=== PATIENT | male | born 1980 | race Caucasian/White ===

== ENCOUNTER 2021-06-30 16:23 | Emergency (ER) | payer OTHER, SELFPAY ==
--- NOTE | ~2021-06-30 | XR_ITS ---
XR lumbar spine min 4V 06/30/2021 17:10 Indication: Low back pain for 3 weeks Procedure: 5 views of the lumbar spine Comparison: No prior studies for comparison. Findings: There is mild levocurvature of the lumbar spine. There is mild disc narrowing at L5-S1. Barber tebral body heights are maintained. No evidence for spondylolisthesis. Sacral foramen are symmetric. Pedicles intact. There is mild facet degenerative change at L5-S1. Impression: 1: Mild lumbar spondylosis. Reviewed, dictated and finalized at location A. GAUGER Impression: 1: Mild lumbar spondylosis.
--- NOTE | 2021-06-30 16:38 | PC.NURSE ---
1638- pt went to vehicle to grab cellphone.
[2021-06-30 16:42] VITALS: BP 131/77; PULSE 82; RESP 18; TEMP 36.4; O2SAT 100
--- NOTE | 2021-06-30 16:48 | ED.BACK ---
HPI - Back Pain/Injury General Chief Complaint: Back Pain/Injury Stated Complaint: . Time Seen by Provider: 06/30/21 16:48 Source: patient Mode of arrival: ambulatory Limitations: no limitations History of Present Illness HPI Narrative: 41 yo M presents with pain to low back with intermittent radiation of pain to L leg for past 2 to 3 wks. Denies injury. Pain the worst when first waking up in the AM and after sitting for long periods of time. Has been taking ibuprofen for pain. Today left work early because of pain. pt gets drug tested often. States my boss said it's ok if i take hydrocodone . Denies numbness/tingling. no saddle anesthesia. Ambulatory with steady gait. no weakness to LEs. All systems reviewed and negative except as noted above. Related Data Allergies Allergy/AdvReac Type Severity Reaction Status Date / Time amoxicillin [From Amoxil] AdvReac Nausea and Verified 06/30/21 16:49 Vomiting Review of Systems Review of Systems: CONSTITUTIONAL: Denies fever, chills, or sweats. EYES: Denies visual changes, redness, or discharge. ENT: Denies rhinorrhea, congestion, sore throat, or otalgia. CARDIOVASCULAR: Denies chest pain, palpitations, or edema. RESPIRATORY: Denies cough or dyspnea. GASTROINTESTINAL: Denies abdominal pain, nausea, vomiting, or diarrhea. GENITOURINARY: Denies dysuria or hematuria. SKIN: Denies rash or itching. MUSCULOSKELETAL: Low back pain with intermittent radiation to left leg. NEUROLOGIC: Denies headache, numbness, or weakness. PSYCHIATRIC: Denies anxiety or depression. All other systems reviewed are negative, except as documented in HPI. PMFSH Comments At time of signature, agree with nursing past medical, surgical, social and family history. There is no relevant family history pertinent to the presenting complaint. Exam Narrative: GENERAL: This is a well-nourished, well-developed patient, in no apparent distress. HEAD: normocephalic, atraumatic. EYES: PERRL. Sclera clear/white. Vision is grossly intact. EARS: External ears normal, auditory canals clear and without drainage, TMs normal without perforation. Hearing grossly intact. NOSE: External nose normal with no obvious nasal discharge, nares without redness, no rhinorrhea. THROAT: Mucous membranes moist, posterior pharynx clear. NECK: Neck supple, non-tender without lymphadenopathy, masses or thyromegaly. CARDIOVASCULAR: Regular rate and rhythm without murmurs, gallops, or rubs. RESPIRATORY: Clear to auscultation. Breath sounds equal bilaterally. No wheezes, rales, or rhonchi. GASTROINTESTINAL: Abdomen soft, non-tender, nondistended. Bowel sounds are active. No hepato-splenomegaly, or palpable masses. No guarding. SKIN: warm, Dry, intact with no suspicious lesions or rash, good texture and turgor. NEURO: awake, alert, and oriented to person, place and time. There were no obvious focal neurologic abnormalities. EXTREMITIES: No joint tenderness, effusion, or edema noted. No calf tenderness. Negative Homans sign bilaterally. BACK: Midline tenderness to lumbar spine, muscular tenderness and spasming to low back. LE strength 5/5. decreased flexion but otherwise normal ROM. Course Course Level of Care: Express Care Visit Vital Signs Vital signs: Vital Signs Temperature 36.4 C L 06/30/21 16:42 Pulse Rate 82 06/30/21 16:42 Respiratory Rate 18 06/30/21 16:42 Blood Pressure 131/77 06/30/21 16:42 Pulse Oximetry 100 06/30/21 16:42 Temperature 36.4 C L 06/30/21 16:42 Pulse Rate 82 06/30/21 16:42 Respiratory Rate 18 06/30/21 16:42 Blood Pressure 131/77 06/30/21 16:42 Pulse Oximetry 100 06/30/21 16:42 MDM - Back Pain/Injury MDM Narrative Medical decision making narrative: No risk factors or findings concerning for epidural abscess, diskitis, vertebral osteomyelitis, cord compression, cauda equina, vertebral fracture or bone malignancy, AAA, or pyelonephritis. Patient instructed to consider further imaging and w
[2021-06-30] MEDS: KETOROLAC (*BKC) 60 MG/2 ML VIAL IM (16:59)
== END 2021-06-30 17:30 | disposition home or self-care (01) ==
PROVIDERS: Emergency Provider Nurse Practitioner Family
DX: M47.816 Spondylosis without myelopathy or radiculopathy, lumbar region (principal); S39.012A Strain of muscle, fascia and tendon of lower back, initial encounter; X58.XXXA Exposure to other specified factors, initial encounter; M54.42 Lumbago with sciatica, left side
CPT/HCPCS: 72110; 96372; 99203; G0463; J1885

== ENCOUNTER 2022-07-18 11:52 | Outpatient (CLI) | payer OTHER, SELFPAY ==
--- NOTE | 2022-07-18 12:30 | ECG_ITS ---
Measurements Intervals Jerome Rate: 82 P: 40 [place]: 140 QRS: 17 QRSD: 93 T: 11 QT: 354 QTc: 415 Interpretive Statements SINUS RHYTHM BASELINE ARTIFACT- I, II, III, AVR, AVL, AVF NORMAL ECG NO PREVIOUS ECG AVAILABLE FOR COMPARISON Electronically Signed On 07-18-2022 14:19:21 CDT by Austin Thomason D.O.
[2022-07-18 13:08] LABS: Hematocrit 42.5 % (42.0-52.0); Hemoglobin 14.8 g/dL (14.0-18.0)
== END 2022-07-18 11:53 | disposition home or self-care (01) ==
LOC: ANHSURGERY 11:58
PROVIDERS: Anesthesiology; PCP Family Medicine; Visit Provider Neurological Surgery
DX: M54.16 Radiculopathy, lumbar region (principal); Z01.818 Encounter for other preprocedural examination
CPT/HCPCS: 36415; 85014; 85018; 86850; 86900; 86901; 93005

== ENCOUNTER 2022-07-25 00:14 | Day surgery (SDC) | payer OTHER, SELFPAY ==
[2022-07-16 13:15] VITALS: BMI 30.1
--- NOTE | 2022-07-16 13:21 | PC.NURSE ---
Report to the Outpatient Waiting Room, entrance under the green pavilion located off [facility], at time 9:00 on date 07/25/22. Planned Procedure Time: 11:00. Time changes happen often and if your time is changed the preop area will call you the afternoon before. - You and your visitor will be asked to self-screen and do not enter if you have any COVID symptoms. - Only one visitor is requested with a max of two and NO children visitors are allowed at this time. - The patient visitor may be requested to leave or wait in car when not with patient due to distancing restrictions. - A mask is optional within the hospital at this time. Patients may have clear liquids (water, carbonated beverages, clear teas, apple juice) until 3 hours prior to surgery (8:00) with a maximum of 20 ounces. - No food from midnight until time of surgery Take the following medications with a SIP of water the morning of surgery: PAIN PILL DO NOT STOP ANY OF YOUR OTHER PRESCRIPTION MEDICATIONS PRIOR TO SURGERY EXCEPT THE FOLLOWING Medications to discontinue per physician: IBUPROFEN Date to take last dose: PER DR. JESUS Please no make-up, nail indonesian, hairspray, perfume, deodorant, or body powder the day of surgery. No jewelry (including any body piercings) or valuables the day of surgery, leave them at home. Please take a shower or bath the night before, or the morning of, surgery with an antibacterial soap. Wear comfortable, loose fitting clothing. - Jewelry must be removed prior to entering the operating room. Rings and piercings that are not removed may be cut off. - The hospital will not accept responsibility for valuables. - Please leave all valuables, including medications, at home the day of surgery. If you are going home after surgery, a licensed electric lift truck driver must drive you home. - NO public transportation without another adult if you receive anesthesia. - We recommend that an adult stay with you for 24 hours following discharge. - We also recommend that you do not drive, make important decision, drink alcoholic beverages, or take any drugs that were not prescribed by your health care provider for at least 24 hours after your discharge time. Follow any additional instructions given to you from your surgeon. If you or anyone in your household have experienced Covid symptoms in the past week, please notify your surgeon or the nurse liaison at the phone number below for possible testing. Telephone instructions given to PT - MAKAYLA GRAYSON and asked if any additional questions and then verbalized understanding. Patient advised to call surgeon office or pre surgery nurse liaison [phone] if any additional questions.
[2022-07-25] VITALS (12 sets, daily range): BP systolic 130–168; BP diastolic 81–98; PULSE 95–123; RESP 14–20; TEMP 36.6–37.6; O2SAT 94–100
--- NOTE | ~2022-07-25 | XR_ITS ---
EXAMINATION: XR fluoroscopy no charge DATE: 07/25/2022 09:59 INDICATION: Lumbar spondylosis. TECHNIQUE: 2 intraoperative fluoroscopic views of the lumbar spine were obtained. I was not present. Fluoroscopy exposure time was 5 seconds. COMPARISON: Lumbar spine radiographs 06/30/2021 FINDINGS: 2 lateral views of the lumbar spine demonstrates instruments overlying the posterior elemen ts at L3-L4. There is mild lumbar spondylosis. IMPRESSION: 1. Lumbar spine surgery. Reviewed, dictated and finalized at location A. IMPRESSION: 1. Lumbar spine surgery.
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
[2022-07-25] MEDS: LACTATED RINGERS 1,000 ML 30 ML IV CONT ×2 (06:36→09:28)
--- NOTE | 2022-07-25 07:30 | WPDHPUPDATE1 ---
History and Physical Update Update Date/Time: 07/25/22 07:30 History and Physical has been reviewed, including an updated exam of the patient. There are NO changes in the patient's condition. Risks, benefits, and alternatives have been discussed and questions answered. Patient agrees to proceed with procedure.
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
[2022-07-25] MEDS: ceFAZolin 2 GM/D5W 50 ML 2 GM/50 ML BAG IVPB ×2 (07:36→21:57)
[2022-07-25] MEDS: BUPIVACAINE/EPINEPHRINE 0.5% 50 ML VIAL INFILTRATE (08:11)
--- NOTE | 2022-07-25 09:44 | P.OP_ITS ---
Procedure Note - Detailed Date of Procedure 07/25/22 Pre-op Diagnosis Lumbar Stenosis, Lumbar Radiculopathy Post-op Diagnosis Same Procedure Performed Lumbar laminectomy Surgeon Brooklynn Wilder MD Recreation Supervisor JUD Silva Anesthesia General Indications Mr. Gross is a 42-year-old male with history of back and left > right leg pain and numbness as well as urinary incontinence who was found to have significant central stenosis at L3-4. He has failed multiple conservative measures. Surgery in the form of L3 laminectomy was recommended. The risks including bleeding, pain, infection, weakness, CSF leak, nerve damage, paresthesias, and anesthetic complications were discussed. The patient provided writtien informed consent to proceed. Findings Successful L3 laminectomy. No significant disc herniation was identified, so the possible L3-4 microdiskectomy was not performed. 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 He was transferred into the prone position onto the operating table. All pressure points were padded. The L3 level was identified with the C-arm. The planned incision was marked, and the surgical site was prepped and draped in usual sterile fashion. Time out was conducted, and 20cc of 0.5% marcaine with epinephrine was injected into the incision. The incision was opened with a 10-blade scalpel. The soft tissue was opened to the spinous process was opened with the bovie. Self-retaining retractor was placed. A subperiosteal dissection was performed with the bovie along the L3 lamina. A curved currette was placed under the lamina to verify the correct level with the C-arm. The spinous process was removed with a Leksell, and the laminae were thinned with a high-speed drill. Once the ligamentum flavum was exposed, kerrison rongeurs were used to remove the remaining lamina and ligamentum. This was carried out laterally, inferiorly, and superiorly until the dura was felt to be well decompressed. A Woodsen was used to verify this. The ventral epidural space was visualized, and no significant disc herniation was noted. The dura was also somewhat adherent to the PLL. Ultimately, the possible microdiskectomy was not felt to be necessary. The surgical field was copiously irrigated. Surgiflo was used for hemostasis in the epidural space. The muscle was approximated with 0 vicryl. The fascia was closed with 0 vicryl, and the dermis was closed with 2-0 and 3-0 vicryl. 4-0 monocryl was used to close the skin in a subcuticular fashion. Dermabond-like skin glue was applied to the incision. The patient was returned in the supine position in the stretcher, extubated, and transferred to PACU in stable condition. Code: 04844 Implants None Estimated Blood Loss -25.0 Drains No Packing No Pathology None sent Complications No immediate complications Condition Stable Disposition PACU [facility] Billing Surgery - Charge Forward: Surgery Billing
[2022-07-25] MEDS: HYDROmorphone HCL INJ (*CRX) 1 MG/ML SYR 0.5 MG IV PUSH ×2 (09:55→10:00)
--- NOTE | 2022-07-25 10:49 | ADMGEN ---
This patient, Ag Gross, was admitted to [facility] Surg Room 325-01. Patient/family oriented to hospital policies and general routines including ID bracelet, bed and alarms, visiting hours, pain management, procedures, bathroom and other care routines, personal items, smoking policy, room service/diet, and visiting hours. Information on how to activate the Rapid Response Team has been discussed. Patient/Family are encouraged to report perceived risks to care and to ask questions if they do not understand what they are told or what they should do.
[2022-07-25] MEDS: KCL 20MEQ/0.9% SOD CHL 1,000 ML 75 ML IV CONT (11:10)
[2022-07-25] MEDS: ACETAMINOPHEN 500 MG TABLET 1000 MG PO ×2 (11:11→17:26)
[2022-07-25] MEDS: oxyCODONE HCL (*CRX) 5 MG TAB IR 10 MG PO (12:03)
[2022-07-25] MEDS: CYCLOBENZAPRINE HCL 10 MG TABLET PO (12:39)
[2022-07-25] MEDS: DEXAMETHASONE SOD PHOS INJ 4 MG/ML VIAL IV PUSH ×2 (13:00→17:26)
[2022-07-26 00:29] VITALS: BP 144/78; PULSE 96; RESP 16; TEMP 36.6; O2SAT 98
[2022-07-26] MEDS: ACETAMINOPHEN 500 MG TABLET 1000 MG PO ×2 (00:42→05:23)
[2022-07-26] MEDS: DEXAMETHASONE SOD PHOS INJ 4 MG/ML VIAL IV PUSH ×2 (00:42→05:23)
[2022-07-26] MEDS: oxyCODONE HCL (*CRX) 5 MG TAB IR 10 MG PO ×2 (03:27→07:44)
[2022-07-26 04:29] VITALS: BP 157/84; PULSE 71; RESP 14; TEMP 36.6; O2SAT 98
[2022-07-26] MEDS: KCL 20MEQ/0.9% SOD CHL 1,000 ML 75 ML IV CONT (05:22)
[2022-07-26 08:29] VITALS: BP 134/84; PULSE 97; RESP 16; TEMP 36.9; O2SAT 98
[2022-07-26] MEDS: ceFAZolin 2 GM/D5W 50 ML 2 GM/50 ML BAG IVPB (08:49)
[2022-07-26] MEDS: DOCUSATE SODIUM 100 MG CAPSULE PO (08:50)
--- NOTE | 2022-07-26 09:48 | WPDANESPN ---
Anes - Prog Note Post-Op Date/Time: 07/26/22 09:48 Cardiovascular status: normal Respiratory status: normal Airway patency: baseline Mental status: baseline Post-Op hydration status: normal Vital Signs: Last Vital Signs Temp 36.9 C 07/26/22 08:29 Pulse 97 07/26/22 08:29 Resp 16 07/26/22 08:29 BP 134/84 07/26/22 08:29 Pulse Ox 98 07/26/22 08:29 O2 Del Method Room Air 07/25/22 20:00 O2 Flow Rate 10 07/25/22 09:30 Pain Score (VAS): 07/06 I/O: Intake & Output 07/25/22 07/26/22 07/26/22 23:59 07:59 15:59 Intake Total 740 3116 240 Balance 740 3116 240 Post-procedural complaints: none Patient Feedback: Patient satisfied with anesthetic care.
== END 2022-07-26 11:09 | disposition home or self-care (01) ==
LOC: ANHSURGERY 09:43 → ANH3MEDSUR 10:34
PROVIDERS: PCP Family Medicine; Visit Provider Neurological Surgery
PROC: (CPT 63030; principal; 2022-07-25 07:30)
DX: M48.061 Spinal stenosis, lumbar region without neurogenic claudication (principal); M54.16 Radiculopathy, lumbar region; N39.498 Other specified urinary incontinence; F17.210 Nicotine dependence, cigarettes, uncomplicated; E66.9 Obesity, unspecified; Z68.31 Body mass index [BMI] 31.0-31.9, adult; Z79.891 Long term (current) use of opiate analgesic
CPT/HCPCS: 63047; 97161; 97165; 99199; A9270; J0690; J1100; J1170; J2250; J2405; J2704; J2710; J3010; J3480; J7120

== ENCOUNTER 2023-05-20 11:18 | Outpatient (CLI) | payer OTHER, SELFPAY ==
--- NOTE | ~2023-05-20 | XR_ITS ---
XR lumbar spine 2-3V 05/20/2023 11:48 Indication: Status post arthrodesis. Back pain. Procedure: 3 views lumbar spine Comparison: 06/30/2021 Findings: There is a prosthetic disc device at L3-4. There are pedicle screws and fixation rods fusin g L3-4. Hardware appears to be intact. There are laminectomy changes at L3. No acute fracture or trau matic malalignment. Vertebral body heights are maintained. No evidence for spondylolisthesis. Impression: 1: Status post posterior fusion with discectomy at L3-4. Reviewed, dictated and finalized at location B. LL MACHINE OPERATOR Impression: 1: Status post posterior fusion with discectomy at L3-4.
== END 2023-05-20 11:19 | disposition home or self-care (01) ==
PROVIDERS: PCP Family Medicine; Visit Provider Neurological Surgery
DX: Z98.1 Arthrodesis status (principal)
CPT/HCPCS: 72100

== ENCOUNTER 2023-06-12 10:32 | Outpatient (CLI) | payer OTHER, SELFPAY ==
--- NOTE | ~2023-06-12 | XR_ITS ---
AP and lateral views of the left hip Clinical history: Pain Findings: No acute fracture or dislocation is seen. Osseous alignment is anatomic. Left hip joint is preserved. Soft tissues are unremarkable. Impression: No significant abnormality is seen. Reviewed, dictated and finalized at location M. E ROLLER Impression: No significant abnormality is seen.
== END 2023-06-12 10:33 | disposition home or self-care (01) ==
LOC: ANHIMG 10:33
PROVIDERS: PCP Family Medicine; Visit Provider Neurological Surgery
DX: M25.552 Pain in left hip (principal)
CPT/HCPCS: 73502

== ENCOUNTER 2023-06-27 10:24 | Outpatient (CLI) | payer OTHER, SELFPAY ==
--- NOTE | ~2023-06-27 | MR_ITS ---
MRI of the lumbar spine Clinical History: Spinal stenosis Technique: Axial T2-weighted images, and sagittal T1-weighted, T2-weighted, and STIR images were acqu ired. Findings: No acute fracture or subluxation identified. There is posterior fusion from L3 to L4 with b ilateral rods and intrapedicular screws present, probable posterior decompression of L3. No acute fra cture or subluxation seen. No suspicious bone marrow signal abnormality seen. At L1-L2, there is no disc bulge or herniation. There is mild central canal stenosis. Neural foramina are preserved. At L2-L3, there is no disc bulge or herniation. There is moderate canal stenosis, largely apparently a congenital basis. Neural foramina are preserved. At L3-L4, there is minimal disc bulge. No central canal stenosis, with posterior decompression presen t. Probable moderate right neural foraminal narrowing. Left neural foramen probably preserved. At L4-L5, there is mild disc bulge with moderate facet arthropathy. There is moderate to severe centr al canal stenosis/thecal sac compression. There is moderate to advanced right neural foraminal narrow ing. Probable mild left neural foraminal narrowing. At L5-S1, there is no disc bulge or herniation. There is mild facet arthropathy. There is mild centra l canal stenosis. Neural foramina are preserved. Paravertebral soft tissues are unremarkable. Impression: Posterior fusion from L3 to L4 with posterior decompression of L3. Extensive canal stenosis, largely on congenital basis, with mild to moderate degenerative spondylosis changes, as above. Reviewed, dictated and finalized at [facility]. MENTATION SPECIALIST Impression: Posterior fusion from L3 to L4 with posterior decompression of L3. Extensive canal stenosis, largely on congenital basis, with mild to moderate de generative spondylosis changes, as above.
== END 2023-06-27 10:25 | disposition home or self-care (01) ==
LOC: ANHIMG 10:31
PROVIDERS: PCP Family Medicine; Visit Provider Neurological Surgery
DX: M48.061 Spinal stenosis, lumbar region without neurogenic claudication (principal); M54.16 Radiculopathy, lumbar region; Z98.1 Arthrodesis status
CPT/HCPCS: 72148

== ENCOUNTER 2023-10-02 11:09 | Outpatient (CLI) | payer OTHER, SELFPAY ==
--- NOTE | ~2023-10-02 | CT_ITS ---
EXAMINATION: CT lumbar spine wo con DATE: 10/02/2023 11:29 INDICATION: Dorsalgia, unspecified. TECHNIQUE: Computed tomography (CT) of the lumbar spine was performed without intravenous contrast. A utomated exposure control and iterative reconstruction technique were employed. The dose-length produ ct was 1294.84 mGy-cm. COMPARISON: Lumbar spine MRI 06/27/2023 FINDINGS: There is diffuse hepatic steatosis. There is 4 degrees levocurvature of lumbar spine. There are changes of anterior and posterior fusion procedures at L3-L4 with interbody devices and pedicle screws. There is an old fracture of spinous process of L4 with nonunion. There are old fractures of r ight L1, L3, and L4 transverse processes. There is a chronic right L3 pars defects. There are changes of resection of left L3 inferior facet and portions of the L3 lamina and spinous process. Central sp inal canal is developmentally small. The following disc levels are specifically discussed: L1-L2: The disc does not extend beyond the endplate margin. There is mild bilateral facet joint osteo arthritis. There is no neural foraminal stenosis. There is no central canal stenosis. L2-L3: The disc is bulging. There is mild bilateral facet joint osteoarthritis. There is mild right n eural foraminal stenosis. There is mild central canal stenosis. L3-L4: There is mild right facet joint hypertrophy. There is mild right neural foraminal stenosis. Th ere is mild central canal stenosis with posterior decompression. L4-L5: The disc is bulging. There is mild bilateral facet joint osteoarthritis. There is mild bilater al neural foraminal stenosis. There is mild central canal stenosis. L5-S1: The disc does not extend beyond the endplate margin. There is mild bilateral facet joint osteo arthritis. There is no neural foraminal stenosis. There is no central canal stenosis. IMPRESSION: 1. Mild lumbar spondylosis. 2. Anterior posterior fusion procedures at L3-L4. Reviewed, dictated and finalized at location A.
== END 2023-10-02 11:10 | disposition home or self-care (01) ==
PROVIDERS: PCP Family Medicine; Visit Provider Neurological Surgery
DX: M43.06 Spondylolysis, lumbar region (principal); Z98.1 Arthrodesis status
CPT/HCPCS: 72131

== ENCOUNTER 2023-10-29 08:03 | Outpatient (CLI) | payer OTHER, SELFPAY ==
--- NOTE | 2023-10-29 12:25 | ECG_ITS ---
Test Date: 2023-10-29 12:38:03 Measurements Intervals [place] Rate: 88 P: 56 [place]: 142 QRS: 15 QRSD: 92 T: 13 QT: 350 QTc: 425 Interpretive Statements SINUS RHYTHM DELAYED PRECORDIAL R/S TRANSITION BASELINE ARTIFACT- I, II, III, AVR, AVL, AVF, V1-V6 BORDERLINE ECG No previous ECG available for comparison Electronically Signed On 10-29-2023 16:45:17 CDT by Austin Thomason D.O.
[2023-10-29 12:49] LABS: Hematocrit 43.8 % (42.0-52.0); Hemoglobin 15.2 g/dL (14.0-18.0); Mean Corpuscular HGB Conc 34.7 g/dl (32-36); Mean Corpuscular Hemoglobin 33.3 pg (26-34); Mean Corpuscular Volume 96.1 fl (80-100); Mean Platelet Volume 9.4 fl (7.4-10.4); Platelet Count Result 317 k/mm3 (150-375); Red Blood Count 4.56 M/mm3 (4.6-6.20); Red Cell Distribution Width 12.2 % (11.5-14.5); White Blood Count 7.7 K/mm3 (4.5-10.0)
[2023-10-29 12:59] LABS: Anion Gap 10 mmol/L (4-12); Blood Urea Nitrogen 2 mg/dL (9-20); Calcium 8.9 mg/dL (8.4-10.2); Carbon Dioxide 21 mmol/L (22-30); Chloride 103 mmol/L (98-107); Estimated Glomerular Filt Rate > 60; Glucose 89 mg/dL (65-110); Potassium 4.5 mmol/L (3.4-5.0); Sodium 134 mmol/L (137-145)
[2023-10-29 13:02] LABS: Partial Thromboplastin Time 23.6 Seconds (22.3-36.8); Prothrombin Time 13.6 Seconds (11.1-14.7)
[2023-10-29 13:41] LABS: Add Urine Microscopic? NO; Appearance Urine Clear (Clear); Bilirubin Urine Negative (Negative); Blood Urine Negative (Negative); Color Urine Yellow (Yellow); Glucose Urine UA Negative (Negative); Ketones Urine Negative (Negative); Leukocyte Esterase Ur Negative LEU/UL (Negative); Nitrate Urine Negative (Negative); Protein Urine Negative (Negative); Specific Grav Ur 1.008 (1.001-1.035); Urobilinogen Urine 0.2 mg/dL (<2.0)
== END 2023-10-29 08:04 | disposition home or self-care (01) ==
PROVIDERS: PCP Family Medicine; Visit Provider Neurological Surgery
DX: M48.061 Spinal stenosis, lumbar region without neurogenic claudication (principal); Z01.818 Encounter for other preprocedural examination; R94.31 Abnormal electrocardiogram [ECG] [EKG]
CPT/HCPCS: 36415; 80048; 81003; 85027; 85610; 85730; 93005

== ENCOUNTER 2023-11-06 01:31 | Day surgery (SDC) | payer OTHER, SELFPAY ==
[2023-10-28 15:45] VITALS: BMI 32.8
--- NOTE | 2023-10-28 15:50 | PC.NURSE ---
Report to the Outpatient Waiting Room, entrance under the green pavilion located off [facility], at time _0900_ on date _[id number]_. Planned Procedure Time: _1100_. Time changes happen often and if your time is changed the preop area will call you the afternoon before. - You and your visitor will be asked to self-screen and do not enter if you have any COVID symptoms. - A mask is optional within the hospital at this time. Patients may have clear liquids (water, carbonated beverages, clear teas, apple juice) until 3 hours prior to surgery with a maximum of 20 ounces. - No food from midnight until time of surgery Take the following medications with a SIP of water the morning of surgery: ___Pain medication if needed. Avoid the lidocaine patch morning of surgery as they will be removed for surgery. DO NOT STOP ANY OF YOUR OTHER PRESCRIPTION MEDICATIONS PRIOR TO SURGERY ?EXCEPT THE FOLLOWING Medications to discontinue per physician Please check with Dr Morris's office regarding Ibuprofen if need to stop before surgery. Please no make-up, nail namibian, hairspray, perfume, deodorant, or body powder the day of surgery. No jewelry (including any body piercings) or valuables the day of surgery, leave them at home. Please take a shower or bath the night before, or the morning of, surgery with an antibacterial soap. Wear comfortable, loose fitting clothing. - Jewelry must be removed prior to entering the operating room. Rings and piercings that are not removed may be cut off. - The hospital will not accept responsibility for valuables. - Please leave all valuables, including medications, at home the day of surgery. If you are going home after surgery, a licensed motor pool driver must drive you home. - NO public transportation without another adult if you receive anesthesia. - We recommend that an adult stay with you for 24 hours following discharge. - We also recommend that you do not drive, make important decision, drink alcoholic beverages, or take any drugs that were not prescribed by your health care provider for at least 24 hours after your discharge time. Follow any additional instructions given to you from your surgeon. If you or anyone in your household have experienced Covid symptoms in the past week, please notify your surgeon or the nurse liaison at the phone number below for possible testing. Telephone instructions given to __Nick____and asked if any additional questions and then verbalized understanding. Patient advised to call surgeon office or pre surgery nurse liaison [phone] if any additional questions.
--- NOTE | 2023-10-28 16:14 | PC.NURSE ---
Report to the Outpatient Waiting Room, entrance under the green pavilion located off [facility], at time _0900_ on date _[id number]_. Planned Procedure Time: _1100_. Time changes happen often and if your time is changed the preop area will call you the afternoon before. - You and your visitor will be asked to self-screen and do not enter if you have any COVID symptoms. - A mask is optional within the hospital at this time. Patients may have clear liquids (water, carbonated beverages, clear teas, apple juice) until 3 hours prior to surgery with a maximum of 20 ounces. - No food from midnight until time of surgery Take the following medications with a SIP of water the morning of surgery: __Pain medication if needed. DO NOT STOP ANY OF YOUR OTHER PRESCRIPTION MEDICATIONS PRIOR TO SURGERY ?EXCEPT THE FOLLOWING Medications to discontinue per physician Please check with Dr Morris's office regarding ibuprofen if need to stop before surgery. Date to take last dose Please no make-up, nail chinese, hairspray, perfume, deodorant, or body powder the day of surgery. No jewelry (including any body piercings) or valuables the day of surgery, leave them at home. Please take a shower or bath the night before, or the morning of, surgery with an antibacterial soap. Wear comfortable, loose fitting clothing. - Jewelry must be removed prior to entering the operating room. Rings and piercings that are not removed may be cut off. - The hospital will not accept responsibility for valuables. - Please leave all valuables, including medications, at home the day of surgery. If you are going home after surgery, a licensed local bulk driver must drive you home. - NO public transportation without another adult if you receive anesthesia. - We recommend that an adult stay with you for 24 hours following discharge. - We also recommend that you do not drive, make important decision, drink alcoholic beverages, or take any drugs that were not prescribed by your health care provider for at least 24 hours after your discharge time. Follow any additional instructions given to you from your surgeon. If you or anyone in your household have experienced Covid symptoms in the past week, please notify your surgeon or the nurse liaison at the phone number below for possible testing. Telephone instructions given to __Nick___and asked if any additional questions and then verbalized understanding. Patient advised to call surgeon office or pre surgery nurse liaison [phone] if any additional questions.
[2023-11-06] VITALS (11 sets, daily range): BP systolic 103–157; BP diastolic 61–101; PULSE 91–114; RESP 12–18; TEMP 36.4–37; O2SAT 94–100
--- NOTE | ~2023-11-06 | XR_ITS ---
EXAMINATION: XR fluoroscopy no charge DATE: 11/06/2023 14:04 INDICATION: Lumbar radiculopathy. TECHNIQUE: 2 intraoperative fluoroscopic views of the lumbar spine were obtained. I was not present. Fluoroscopy exposure time was 5 seconds. COMPARISON: CT lumbar spine 10/02/2023 FINDINGS: There are changes of anterior and posterior fusion procedures at L3-L4 with interbody devic es and pedicle screws. There is mild lumbar spondylosis. Instruments overlie the posterior elements a t L2-L3 and L4-L5. IMPRESSION: 1. Anterior and posterior fusion procedures at L3-L4. 2. Mild lumbar spondylosis. Reviewed, dictated and finalized at location E.
[2023-11-06] MEDS: LACTATED RINGERS 1,000 ML 30 ML IV CONT ×2 (09:08→13:53)
--- NOTE | 2023-11-06 10:47 | WPDHPUPDATE1 ---
History and Physical Update Update Date/Time: 11/06/23 10:47 History and Physical has been reviewed, including an updated exam of the patient. There are NO changes in the patient's condition. Risks, benefits, and alternatives have been discussed and questions answered. Patient agrees to proceed with procedure.
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
[2023-11-06] MEDS: ceFAZolin 2 GM/D5W 50 ML 2 GM/50 ML BAG IVPB ×2 (11:07→17:35)
[2023-11-06] MEDS: BUPIVACAINE/EPINEPHRINE 0.5% 10 ML VIAL 30 ML INFILTRATE (11:40)
[2023-11-06] MEDS: BACITRACIN OINTMENT 15 GM TUBE 1 APPLIC TOPICAL (13:40)
--- NOTE | 2023-11-06 13:52 | PM.OP ---
Procedure Note - Brief Procedure Note - Brief Date of procedure: 11/06/23 lumbar radiculopathy Lumbar stenosis with epidural lipomatosis Post-op diagnosis: Same Procedure performed: Left L2-3 hemilaminectomy Left L4-5 hemilaminectomy Use of C-arm Use of microscope Surgeon: Brooklynn Wilder MD Anesthesia: GETA Findings: Successful hemilaminectomies without issue. Able to get decent central as well as very good lateral recess decompression Estimated blood loss (mL): 100 Drains: Yes Packing: No Pathology: None sent Complications: None Condition: Stable Disposition: PACU
--- NOTE | 2023-11-06 14:05 | W.PM.PROC2 ---
Procedure Note - Detailed Date of Procedure 11/06/23 Pre-op Diagnosis lumbar radiculopathy Lumbar stenosis Epidural lipomatosis Post-op Diagnosis Same Procedure Performed 1. Left L2-3 hemilaminectomy 2. Left L4-5 hemilaminectomy 3. Use of C-arm for fluoroscopy 4. Use of microscope Surgeon Brooklynn Wilder MD Price Clerk Ruperto Anesthesia General Indications Mr. Gross is a 43-year-old male with history of an L3-4 TLIF on January 2023 who presents with recurrent left leg pain into the top of the foot which has been unresponsive on long-term basis to physical therapy or an epidural steroid injection. He additionally has left carpal tunnel syndrome but wants to hold off on treating this until his back issues are addressed. I re-reviewed his MRI lumbar spine from the end of May which shows moderate to severe central stenosis at L2-3 and at L4-5 from a combination of congenital canal stenosis and epidural lipomatosis. 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 CT scan shows hardware in good position. I reviewed the images again with the patient today in clinic. Given his persistent pain despite physical therapy and 2 epidural steroid injections, I have offered him surgery in the form of left L2-3 and L4-5 hemilaminectomies. We discussed surgery in detail including risks, expected recovery, and restrictions after surgery. Risks include bleeding, pain, infection, weakness, CSF leak, paresthesias, nerve damage, failure to relieve symptoms, and anesthetic complications. He provided written informed consent to proceed. Description of Procedure The patient was brought back to the operating room where general anesthesia was induced. He was transferred into the prone position onto the operating table. All pressure points were padded. The L2-3 and L4-5 levels were identified with the C-arm. The planned incision was marked, and the surgical site was prepped and draped in usual sterile fashion. Time out was conducted, and 30cc of 0.5% marcaine with epinephrine was injected into the incision. The previous incision was opened with a 10-blade scalpel. The soft tissue was opened to the spinous process with the bovie. Self-retaining retractor was placed. A subperiosteal dissection was performed with the bovie along the L2 and L4 laminae on the left side only. The previous surgical site at L3-4 was left intact without exposure of the hardware. A curved currette was placed under the laminae to verify the correct levels with the C-arm. Starting at the L4-5 level, the lamina was thinned with the drill to the ligamentum. A curved currette was used to separate the ligamentum from the lamina which was further removed with the kerrison. The ligament was elevated with the currette and removed with a kerrison. Epidural fat, both dorsal and ventral to the thecal sac, was removed as far as could be visualized. We were able to achieve central as well as lateral recess and foraminal decompression. Surgiflo and cottonoids were placed in the defect. We then moved the retractor to the L2-3 level. The process was repeated as described above to perform the left L2 hemilaminectomy. Again, a good central and lateral recess decompression was achieved with removal of the epidural fat as well. The spinous process was removed with a Leksell, and the laminae were thinned with a high-speed drill. A Woodsen was used to verify good decompression. Extensive time was spent exploring both levels to ensure good decompression. The surgical field was copiously irrigated. Surgiflo was used for hemostasis in the epidural space. A hemovac drain was placed and tunneled inferiorly. The fascia was closed with 0 vicryl, and the dermis was closed with 2-0 and 3-0 vicryl. The skin was closed with 3-0 nylon. The drain was sutured in place with a nylon as well. Sterile dressings were placed. The patient was returned in the supine position i
--- NOTE | 2023-11-06 15:39 | ADMGEN ---
This patient, Ag Gross, was admitted to [facility] Surg Room 312-01. Patient/family oriented to hospital policies and general routines including ID bracelet, bed and alarms, visiting hours, pain management, procedures, bathroom and other care routines, personal items, smoking policy, room service/diet, and visiting hours. Information on how to activate the Rapid Response Team has been discussed. Patient/Family are encouraged to report perceived risks to care and to ask questions if they do not understand what they are told or what they should do.
[2023-11-06] MEDS: ACETAMINOPHEN 500 MG TABLET 1000 MG PO ×2 (17:20→20:28)
[2023-11-06] MEDS: oxyCODONE HCL (*CRX) 5 MG TAB IR 10 MG PO ×2 (17:20→21:34)
[2023-11-06] MEDS: dexAMETHasone SOD PHOS INJ 4 MG/ML VIAL IV PUSH (18:13)
[2023-11-06] MEDS: oxyCODONE HCL (*CRX) 10 MG TAB SR 12HR PO (20:28)
[2023-11-06] MEDS: DOCUSATE SODIUM 100 MG CAPSULE PO (20:28)
[2023-11-07 00:54] VITALS: BP 131/80; PULSE 88; RESP 14; TEMP 36.1; O2SAT 98
[2023-11-07] MEDS: oxyCODONE HCL (*CRX) 5 MG TAB IR 10 MG PO ×2 (01:35→05:54)
[2023-11-07] MEDS: ACETAMINOPHEN 500 MG TABLET 1000 MG PO ×3 (01:35→13:00)
[2023-11-07] MEDS: ceFAZolin 2 GM/D5W 50 ML 2 GM/50 ML BAG IVPB ×2 (02:26→10:32)
[2023-11-07 04:54] VITALS: BP 153/85; PULSE 70; RESP 18; TEMP 36.1; O2SAT 100
[2023-11-07 08:00] VITALS: BP 151/95; PULSE 81; RESP 16; TEMP 36.6; O2SAT 100
[2023-11-07] MEDS: NEOMYCIN/POLYMYXIN/BACITRACIN OINTMENT PACKET 1 PACKET (09:12)
[2023-11-07] MEDS: oxyCODONE HCL (*CRX) 10 MG TAB SR 12HR PO (09:18)
[2023-11-07] MEDS: DOCUSATE SODIUM 100 MG CAPSULE PO (09:18)
[2023-11-07 12:00] VITALS: BP 147/98; PULSE 91; RESP 16; TEMP 36.5; O2SAT 99
--- NOTE | 2023-11-07 13:46 | WPDNEUROSGPN ---
Progress Note: A&P Assessment and Plan (1) Status post lumbar laminectomy: Code(s): Z98.890 - Other specified postprocedural states Status: Acute Plan -Drain removed -Wound care and activity precautions reviewed -Discharge home today -Follow up in 2 weeks for suture removal Subjective Date/time seen: 11/07/23 13:46 Interval history: He has some back pain, but the buttock and leg pain is resolved. He states he has walked 2 miles since midnight due to restlessness and inability to sleep. He is tolerating oral intake. Review of Systems Review of Systems: All systems reviewed & are unremarkable except as noted in HPI and below Exam Narrative: Dressing c/d/i Full strength in lower extremities Ambulating halls without difficulty or assistance Objective Data Vital Signs Vital Signs: Vital Signs - 24 hr 11/06/23 13:53 11/06/23 14:05 11/06/23 14:15 Temperature 98.0 F Pulse Rate 91 107 H 104 H Respiratory Rate 13 18 12 Blood Pressure 103/61 110/72 149/97 H Pulse Oximetry 100 100 100 Oxygen Delivery Simple Face Mask Simple Face Mask Simple Face Mask Oxygen Flow Rate 8 8 10 11/06/23 14:19 11/06/23 14:30 11/06/23 14:45 Temperature Pulse Rate 98 99 Respiratory Rate 15 18 Blood Pressure 140/89 134/93 H Pulse Oximetry 100 94 95 Oxygen Delivery Room Air Room Air Room Air Oxygen Flow Rate 11/06/23 15:00 11/06/23 14:00 11/06/23 14:15 Temperature 97.8 F 98.0 F Pulse Rate 93 113 H 114 H Respiratory Rate 16 16 14 Blood Pressure 141/91 H 136/96 H 157/101 H Pulse Oximetry 99 96 96 Oxygen Delivery Room Air Oxygen Flow Rate 11/06/23 14:45 11/06/23 15:45 11/06/23 20:00 Temperature 97.8 F 97.9 F 97.5 F L Pulse Rate 112 H 94 111 H Respiratory Rate 14 14 18 Blood Pressure 144/95 H 154/97 H 146/94 H Pulse Oximetry 97 96 98 Oxygen Delivery Oxygen Flow Rate 11/07/23 00:54 11/07/23 04:54 11/07/23 08:00 Temperature 96.9 F L 97.0 F L 97.8 F Pulse Rate 88 70 81 Respiratory Rate 14 18 16 Blood Pressure 131/80 153/85 H 151/95 H Pulse Oximetry 98 100 100 Oxygen Delivery Oxygen Flow Rate 11/07/23 12:00 Temperature 97.7 F Pulse Rate 91 Respiratory Rate 16 Blood Pressure 147/98 H Pulse Oximetry 99 Oxygen Delivery Oxygen Flow Rate Intake/Output Intake/Output: Intake & Output 11/04/23 11/05/23 11/06/23 11/07/23 23:59 23:59 23:59 23:59 Intake Total 440 1340 Output Total 230 55 Balance 210 1285 Meds/Results Medications: Active Medications Generic Name Dose Route Start Last Admin Trade Name Freq PRN Reason Stop Dose Admin Acetaminophen 1,000 mg 11/06/23 13:55 11/07/23 13:00 Acetaminophen 500 Mg Tablet PO 1,000 mg Q6H CHRISTIN Administration Al Hydrox/Mg Hydrox/Simethicone 20 ml 11/06/23 13:54 Mag Hydrox/Al Hydrox/Simeth 30 Ml Udc PO Q4H PRN Indigestion/Heartburn Bisacodyl 10 mg 11/06/23 13:54 Bisacodyl 10 Mg Suppository RECTAL DAILY PRN Constipation Cyclobenzaprine HCl 10 mg 11/06/23 13:54 Cyclobenzaprine Hcl 10 Mg Tablet PO TID PRN Muscle Spasms Docusate Sodium 100 mg 11/06/23 21:00 11/07/23 09:18 Docusate Sodium 100 Mg Capsule PO 100 mg Q12HR CHRISTIN Administration Cefazolin Sodium 2 gm in 50 mls @ 100 mls/hr 11/06/23 19:00 11/07/23 11:02 Ancef 2 Gm/D5w 50 Ml IVPB Infused Q8H CHRISTIN Infusion Morphine Sulfate 2 mg 11/06/23 13:54 Morphine Sulfate (*Crx) 2 Mg/Ml Inj IV PUSH Q2H PRN Pain Rated 7-10 Ondansetron HCl 4 mg 11/06/23 13:54 Ondansetron Inj 4 Mg/2 Ml Vial IV PUSH Q8H PRN Nausea And Vomiting Oxycodone HCl 10 mg 11/06/23 13:54 11/07/23 05:54 Oxycodone Hcl (*Crx) 5 Mg Tab Ir PO 10 mg Q4H PRN Administration Pain Rated 7-10 Oxycodone HCl 5 mg 11/06/23 13:54 Oxycodone Hcl (*Crx) 5 Mg Tab Ir PO Q4H PRN Pain Rated 4-6 Oxycodone HCl 10 mg 11/06/23 21:00 11/07/23 09:18 Oxycodone Hcl (*C
== END 2023-11-07 14:50 | disposition home or self-care (01) ==
LOC: ANHSURGERY 14:04 → ANH3MEDSUR 15:13
PROVIDERS: PCP Family Medicine; Visit Provider Neurological Surgery
PROC: (CPT 63030; principal; 2023-11-06 11:00)
DX: M48.061 Spinal stenosis, lumbar region without neurogenic claudication (principal); M54.16 Radiculopathy, lumbar region; G89.29 Other chronic pain; E66.9 Obesity, unspecified; Z68.32 Body mass index [BMI] 32.0-32.9, adult
CPT/HCPCS: 63030; 63035; 99199; A9270; J0690; J1100; J1170; J1200; J2250; J2405; J2704; J3010; J7120

== ENCOUNTER 2024-01-16 11:32 | Outpatient (CLI) | payer OTHER, SELFPAY ==
--- NOTE | ~2024-01-16 | XR_ITS ---
XR sacroiliac joints min 3V Ordering provider: Brooklynn Wilder MD History: . M25.552 - Pain in left hip . Comparison: None. FINDINGS: BONES: No acute fracture or dislocation. JOINTS: The bilateral sacroiliac joint spaces appear narrowed with sclerotic changes on the iliac abdifatah e. No bony fusion of the sacroiliac joints or bony erosions. SOFT TISSUES: Unremarkable. IMPRESSION: NO ACUTE OSSEOUS ABNORMALITY. NORMAL SACROILIAC JOINTS SUGGESTIVE OF OSTEOARTHRITIC CHANGES.. Reviewed, dictated and finalized at location A. IMPRESSION: NO ACUTE OSSEOUS ABNORMALITY. NORMAL SACROILIAC JOINTS SUGGESTIVE OF OSTEOARTHR ITIC CHANGES..
--- NOTE | ~2024-01-16 | XR_ITS ---
AP and lateral views of the left hip Clinical history: Pain Findings: No acute fracture or dislocation is seen. Osseous alignment is anatomic. Left hip joint is preserved. Soft tissues are unremarkable. Impression: No significant abnormality is seen. Reviewed, dictated and finalized at location M. Impression: No significant abnormality is seen.
--- NOTE | ~2024-01-16 | XR_ITS ---
3 VIEWS LUMBAR SPINE Ordering provider: Brooklynn Wilder MD History: . BACK PAIN X 2 YEARS, HX 2 SURGERIES MOST RECENT 10/2023 . Comparison: May 20, 2023 FINDINGS: VERTEBRAL BODIES:Postoperative changes at the level of L3-L4. No visible fracture or subluxation. De generative changes of the spine. DISK SPACES: Disc spacer at the level of L3-L4. SOFT TISSUES: Normal. Bilateral sacroiliacs. IMPRESSION: No acute osseous abnormality lumbar spine. Reviewed, dictated and finalized at location A.
== END 2024-01-16 11:33 | disposition home or self-care (01) ==
LOC: ANHIMG 11:35
PROVIDERS: PCP Family Medicine; Visit Provider Neurological Surgery
DX: M54.16 Radiculopathy, lumbar region (principal); Z98.1 Arthrodesis status; M25.552 Pain in left hip
CPT/HCPCS: 72110; 72202; 73502

== ENCOUNTER 2024-04-06 14:29 | Outpatient (CLI) | payer OTHER, SELFPAY ==
--- NOTE | ~2024-04-06 | MR_ITS ---
MRI of the thoracic spine Clinical History: Myelopathy Technique: Axial T2-weighted and gradient images, and sagittal T1-weighted, T2-weighted, and STIR netta ges were acquired. Findings: There is no fracture or subluxation of the thoracic spine. Vertebral bodies maintain normal height and alignment. No bone marrow signal abnormality seen. No significant disc bulge or herniation seen at any thoracic level. No spinal canal stenosis or cord compression seen in the thoracic spine. Neural foramina are preserved throughout. No abnormal signal seen in the spinal cord. No epidural mass or collection seen. Paravertebral soft t issues are unremarkable. Impression: Unremarkable exam. Reviewed, dictated and finalized at location . [employer] Impression: Unremarkable exam.
--- NOTE | ~2024-04-06 | MR_ITS ---
MRI of the cervical spine Clinical History: Myelopathy Technique: Axial T2-weighted and gradient images, and sagittal T1-weighted, T2-weighted, and STIR netta ges were acquired. Findings: There is no fracture or subluxation of the cervical spine. Vertebral bodies maintain normal height and line. No bone marrow signal abnormality seen. At C2-C3, there is no disc bulge or herniation. No spinal canal stenosis, cord compression, or neural foraminal narrowing. At C3-C4, there is no significant disc bulge or herniation. No spinal canal stenosis, cord compressio n, or neural foraminal narrowing. At C4-C5, there is minimal disc osteophyte complex. There is minimal canal stenosis without cassidy cor d compression. Probable mild bilateral neural foraminal narrowing. At C5-C6, there is minimal disc osteophyte complex with mild canal stenosis but no cassidy cord marta margot. There is bilateral neural foraminal narrowing. At C6-C7, there is no disc bulge or herniation. No spinal canal stenosis, cord compression, or defini te neural foraminal narrowing. No abnormal signal seen in the spinal cord. Paravertebral soft tissues are unremarkable. Impression: Mild degenerative spondylosis, as above. Reviewed, dictated and finalized at [facility]. [employer] Impression: Mild degenerative spondylosis, as above.
== END 2024-04-06 14:30 | disposition home or self-care (01) ==
PROVIDERS: PCP Family Medicine
DX: M48.061 Spinal stenosis, lumbar region without neurogenic claudication (principal)
CPT/HCPCS: 72141; 72146